=== PATIENT | female | born 1945 | race Caucasian/White ===

== ENCOUNTER 2017-09-22 13:20 | Day surgery (SDC) | payer MEDICARE ==
[~2017-09-22] VITALS: Ht 162.6 cm; Wt 104.0 kg
[~2017-09-22 13:20] MED LIST: ESTR2 PO; Excedrin Extra1 EACH; GABA600 PO; HYDR-86; Hair, Skin & N1 EACH PO; IBUP800 PO; OXYACE5T PO; OXYACE7.5T PO; POTCHL20ER PO; PRAM.125 PO; PROP80ER PO; ROPI1; RXIBUP800 PO; TORSE20 PO; Transderm-Scop1 EACH; VENL37.5ER PO
[2018-06-28] MEDS ORDERED: PROP80ER PO (11:21)
[2018-06-28] MEDS ORDERED: TORSE20 PO (11:21)
[2018-06-28] MEDS ORDERED: Estradiol0.5 MG PO (11:21)
[2018-06-28] MEDS ORDERED: Multivitamin1 EAC1 PO (11:21)
[2018-06-28] MEDS ORDERED: Norco 10-325 T1 EACH PO (11:22)
[2018-06-28] MEDS ORDERED: Neurontin 300300 MG PO (11:22)
[2018-06-28] MEDS ORDERED: Excedrin Extra1 EACH PO (11:22)
[2018-06-28] MEDS ORDERED: PRAM.125 PO (11:23)
[2018-06-28] MEDS ORDERED: VENL37.5ER PO (11:23)
[2018-08-09] MEDS ORDERED: MIRALAX119 GM PO (13:23)
[2018-08-09] MEDS ORDERED: POTA10T PO (13:24)
[2018-08-09] MEDS ORDERED: TORSE20 PO (13:24)
== END 2017-09-22 18:10 | disposition home or self-care (01) ==
LOC: ORSCSDS 13:20
PROVIDERS: Internal Medicine Gastroenterology
PROC: 3E0H8GC Introduction of Other Therapeutic Substance into Lower GI, Via Natural or Artificial Opening Endoscopic (ICD-10-PCS; principal; 2017-09-22 15:00)
PROC: 0DBK8ZX Excision of Ascending Colon, Via Natural or Artificial Opening Endoscopic, Diagnostic (ICD-10-PCS; principal; 2017-09-22 15:00)
PROC: 0DBM8ZX Excision of Descending Colon, Via Natural or Artificial Opening Endoscopic, Diagnostic (ICD-10-PCS; principal; 2017-09-22 15:00)
PROC: 0DBH8ZX Excision of Cecum, Via Natural or Artificial Opening Endoscopic, Diagnostic (ICD-10-PCS; principal; 2017-09-22 15:00)
DX: Z86.010 Personal history of colon polyps (principal); Z80.0 Family history of malignant neoplasm of digestive organs; Z83.71 Family history of colonic polyps; K57.30 Diverticulosis of large intestine without perforation or abscess without bleeding; K63.5 Polyp of colon; D12.2 Benign neoplasm of ascending colon; D12.0 Benign neoplasm of cecum; I10 Essential (primary) hypertension; G47.33 Obstructive sleep apnea (adult) (pediatric); E66.01 Morbid (severe) obesity due to excess calories; Z68.39 Body mass index [BMI] 39.0-39.9, adult; Z79.899 Other long term (current) drug therapy
CPT/HCPCS: 88305; J1980; J2250; J7120

== ENCOUNTER 2017-09-24 03:24 | Observation (INO) | payer MEDICARE ==
[~2017-09-24] VITALS: Ht 162.6 cm; Wt 106.5 kg
[2017-09-24 04:12] LABS: BASOPHILS ABSOLUTE AUTO 0.05 K/mm3 (0.00-0.23); BASOPHILS PERCENT AUTO 1 % (0-2); EOSINOPHILS ABSOLUTE AUTO 0.34 K/mm3 (0.00-0.68); EOSINOPHILS PERCENT AUTO 3 % (0-6); Hematocrit 36.1 % (33.0-51.0); Hemoglobin 11.6 g/dL (11.5-16.0); IMMATURE GRAN ABSOLUTE AUTO 0.05 K/mm3 (0.00-0.10); IMMATURE GRAN PERCENT AUTO 1 % (0-1); LYMPHOCYTES ABSOLUTE AUTO 2.23 K/mm3 (0.84-5.20); LYMPHOCYTES PERCENT AUTO 22 % (21-46); MONOCYTES ABSOLUTE AUTO 0.71 K/mm3 (0.16-1.47); MONOCYTES PERCENT AUTO 7 % (4-13); Mean Corpuscular HGB 31.2 pg (26.0-34.0); Mean Corpuscular HGB Conc 32.1 g/dL (31.5-36.5); Mean Corpuscular Volume 97 fL (80-100); Mean Platelet Volume 9.5 fL (9.1-12.4); NEUTROPHILS ABSOLUTE AUTO 6.88 K/mm3 (1.96-9.15); NEUTROPHILS PERCENT AUTO 67 % (41-73); Platelet Count 281 K/mm3 (150-400); RDW Coefficient Variation 13.1 % (11.7-14.2); RDW Standard Deviation 46.9 fL (35.1-46.3); Red Blood Cell Count 3.72 M/mm3 (3.80-5.20); White Blood Cell Count 10.26 K/mm3 (4.00-11.30)
[2017-09-24 04:24] LABS: Alanine Aminotransfer (ALT/SGP 22 U/L (12-78); Albumin, Blood 3.2 g/dL (3.4-5.0); Albumin/Globulin Ratio 1.1 (0.8-1.8); Alk Phos 51 U/L (50-136); Anion Gap 6 mmol/L (6-16); Aspartate Aminotrans (AST/SGOT 16 U/L (12-37); Bilirubin, Total 0.5 mg/dL (0.1-1.0); Blood Urea Nitrogen 12 mg/dL (8-24); Bun/Creatinine Ratio 15.7 (12.0-20.0); CO2, Blood 25 mmol/L (21-32); Calcium, Blood 8.5 mg/dL (8.5-10.1); Chloride, Blood 109 mmol/L (98-108); Creatinine, Blood 0.77 mg/dL (0.40-1.00); Globulin, Blood 2.9 g/dL (2.2-4.0); Glomerular Filtration Rate >60 (60-); Glucose, Blood 139 mg/dL (70-99); Potassium, Blood 3.5 mmol/L (3.5-5.5); Sodium, Blood 140 mmol/L (136-145); Total Protein, Blood 6.1 g/dL (6.4-8.2)
[2017-09-24 09:28] LABS: Hematocrit 33.8 % (33.0-51.0); Hemoglobin 10.8 g/dL (11.5-16.0)
[2017-09-24 14:26] LABS: Hematocrit 37.3 % (33.0-51.0); Hemoglobin 11.7 g/dL (11.5-16.0)
[2017-09-25 04:02] LABS: BASOPHILS ABSOLUTE AUTO 0.04 K/mm3 (0.00-0.23); BASOPHILS PERCENT AUTO 1 % (0-2); EOSINOPHILS ABSOLUTE AUTO 0.45 K/mm3 (0.00-0.68); EOSINOPHILS PERCENT AUTO 6 % (0-6); Hematocrit 32.6 % (33.0-51.0); Hemoglobin 10.1 g/dL (11.5-16.0); IMMATURE GRAN ABSOLUTE AUTO 0.02 K/mm3 (0.00-0.10); IMMATURE GRAN PERCENT AUTO 0 % (0-1); LYMPHOCYTES ABSOLUTE AUTO 2.11 K/mm3 (0.84-5.20); LYMPHOCYTES PERCENT AUTO 30 % (21-46); MONOCYTES ABSOLUTE AUTO 0.52 K/mm3 (0.16-1.47); MONOCYTES PERCENT AUTO 7 % (4-13); Mean Corpuscular HGB 31.1 pg (26.0-34.0); Mean Platelet Volume 9.7 fL (9.1-12.4); NEUTROPHILS ABSOLUTE AUTO 3.85 K/mm3 (1.96-9.15); NEUTROPHILS PERCENT AUTO 55 % (41-73); Platelet Count 228 K/mm3 (150-400); RDW Coefficient Variation 13.2 % (11.7-14.2); RDW Standard Deviation 49.2 fL (35.1-46.3); Red Blood Cell Count 3.25 M/mm3 (3.80-5.20); White Blood Cell Count 6.99 K/mm3 (4.00-11.30)
[2017-09-25 04:08] LABS: Mean Corpuscular Volume 100 fL (80-100)
[2017-09-25 04:24] LABS: Anion Gap 4 mmol/L (6-16); Blood Urea Nitrogen 4 mg/dL (8-24); Bun/Creatinine Ratio 5.3 (12.0-20.0); CO2, Blood 29 mmol/L (21-32); Chloride, Blood 111 mmol/L (98-108); Creatinine, Blood 0.76 mg/dL (0.40-1.00); Glomerular Filtration Rate >60 (60-); Glucose, Blood 99 mg/dL (70-99); Potassium, Blood 3.6 mmol/L (3.5-5.5); Sodium, Blood 144 mmol/L (136-145)
[2017-09-25 09:24] LABS: Hematocrit 34.9 % (33.0-51.0); Hemoglobin 10.9 g/dL (11.5-16.0)
[2017-09-25] MEDS ORDERED: ACET325 PO (13:30)
[2018-06-28] MEDS ORDERED: Estradiol0.5 MG PO (11:21)
[2018-06-28] MEDS ORDERED: Multivitamin1 EAC1 PO (11:21)
[2018-06-28] MEDS ORDERED: TORSE20 PO (11:21)
[2018-06-28] MEDS ORDERED: PROP80ER PO (11:21)
[2018-06-28] MEDS ORDERED: Neurontin 300300 MG PO (11:22)
[2018-06-28] MEDS ORDERED: Excedrin Extra1 EACH PO (11:22)
[2018-06-28] MEDS ORDERED: Norco 10-325 T1 EACH PO (11:22)
[2018-06-28] MEDS ORDERED: VENL37.5ER PO (11:23)
[2018-06-28] MEDS ORDERED: PRAM.125 PO (11:23)
[2018-08-09] MEDS ORDERED: MIRALAX119 GM PO (13:23)
[2018-08-09] MEDS ORDERED: POTA10T PO (13:24)
[2018-08-09] MEDS ORDERED: TORSE20 PO (13:24)
== END 2017-09-25 13:56 | disposition home or self-care (01) ==
LOC: ER 03:24 → MEDS 03:25 → ERHOLD 03:25 → ICUE 03:25 → ERHOLD 03:25 → MEDS 10:37 → ICUE 12:11
PROVIDERS: Emergency Medicine; Internal Medicine; Internal Medicine Gastroenterology
PROC: 0W3P8ZZ Control Bleeding in Gastrointestinal Tract, Via Natural or Artificial Opening Endoscopic (ICD-10-PCS; principal; 2017-09-24 12:30)
DX: K91.840 Postprocedural hemorrhage of a digestive system organ or structure following a digestive system procedure (principal); D62 Acute posthemorrhagic anemia; I10 Essential (primary) hypertension; R51 Headache; G47.33 Obstructive sleep apnea (adult) (pediatric); G47.61 Periodic limb movement disorder; G89.29 Other chronic pain; M54.9 Dorsalgia, unspecified; Z86.010 Personal history of colon polyps; Z88.5 Allergy status to narcotic agent; Z79.82 Long term (current) use of aspirin; Z79.899 Other long term (current) drug therapy
CPT/HCPCS: 36415; 70450; 74177; 80048; 80053; 82272; 84484; 85014; 85018; 85025; 86850; 86900; 86901; 86920; 93005; 93010; 96374; 96375; 99285; C9113; G0378; J1980; J2370; J2405; J7030; J7120; Q9967

== ENCOUNTER 2018-08-31 07:55 | Day surgery (SDC) | payer MEDICARE ==
[~2018-08-31] VITALS: Ht 162.6 cm; Wt 104.8 kg
[~2018-08-31 07:55] MED LIST changes: +ACET325 PO; +Estradiol0.5 MG PO; +Excedrin Extra1 EACH PO; +MIRALAX119 GM PO; +Multivitamin1 EAC1 PO; +Neurontin 300300 MG PO; +Norco 10-325 T1 EACH PO; +POTA10T PO
== END 2018-08-31 10:11 | disposition home or self-care (01) ==
LOC: ORSCSDS 07:55
PROVIDERS: Ophthalmology
PROC: 08RK3JZ Replacement of Left Lens with Synthetic Substitute, Percutaneous Approach (ICD-10-PCS; principal; 2018-08-31 09:30)
DX: H25.12 Age-related nuclear cataract, left eye (principal); I10 Essential (primary) hypertension; G47.33 Obstructive sleep apnea (adult) (pediatric); Z87.891 Personal history of nicotine dependence; E66.01 Morbid (severe) obesity due to excess calories; Z68.39 Body mass index [BMI] 39.0-39.9, adult; Z79.899 Other long term (current) drug therapy; Z79.82 Long term (current) use of aspirin
CPT/HCPCS: J2250; J3010; J3301; V2632

== ENCOUNTER → 2019-02-01 | Outpatient (CLI) | payer MEDICARE | END | disposition home or self-care (01) | LOC: PLD 11:28 → LAB SHORT 11:28 | DX: D48.5 Neoplasm of uncertain behavior of skin (principal) | CPT/HCPCS: 88305 ==

== ENCOUNTER → 2019-03-29 | Outpatient (CLI) | payer MEDICARE | END | disposition home or self-care (01) | LOC: LAB SHORT 10:01 → PLD 10:01 | DX: D48.5 Neoplasm of uncertain behavior of skin (principal) | CPT/HCPCS: 88305 ==

== ENCOUNTER 2019-06-08 08:23 | Day surgery (SDC) | payer MEDICARE | END 2019-06-08 22:50 | disposition home or self-care (01) | LOC: RAD 08:23 | PROC: B01BYZZ Fluoroscopy of Spinal Cord using Other Contrast (ICD-10-PCS; principal; 2019-06-08) | DX: M96.1 Postlaminectomy syndrome, not elsewhere classified (principal); M54.16 Radiculopathy, lumbar region; Z96.82 Presence of neurostimulator ==

== ENCOUNTER 2019-09-08 06:21 | Day surgery (SDC) | payer MEDICARE ==
[~2019-09-08] VITALS: Ht 160 cm; Wt 103.1 kg
== END 2019-09-08 09:05 | disposition home or self-care (01) ==
LOC: ORSCSDS 06:21
PROVIDERS: Surgery
PROC: 0DBP8ZX Excision of Rectum, Via Natural or Artificial Opening Endoscopic, Diagnostic (ICD-10-PCS; principal; 2019-09-08 08:00)
DX: Z86.010 Personal history of colon polyps (principal); K62.1 Rectal polyp; G47.33 Obstructive sleep apnea (adult) (pediatric); I10 Essential (primary) hypertension; E78.00 Pure hypercholesterolemia, unspecified; F41.8 Other specified anxiety disorders; G25.81 Restless legs syndrome; Z79.899 Other long term (current) drug therapy; E66.01 Morbid (severe) obesity due to excess calories; Z68.41 Body mass index [BMI] 40.0-44.9, adult; Z87.891 Personal history of nicotine dependence
CPT/HCPCS: 88305; J2704; J7120

== ENCOUNTER 2022-03-04 13:09 | Emergency (ER) | payer OTHER, MEDICARE ==
[~2022-03-04] VITALS: Ht 160 cm; Wt 86.2 kg
== END 2022-03-04 14:25 | disposition home or self-care (01) ==
LOC: ER 13:09
DX: M54.2 Cervicalgia (principal); I10 Essential (primary) hypertension; Z79.899 Other long term (current) drug therapy; Z88.5 Allergy status to narcotic agent; V89.2XXA Person injured in unspecified motor-vehicle accident, traffic, initial encounter
CPT/HCPCS: 72125

== ENCOUNTER 2025-03-21 20:45 | Emergency (ER) | payer MEDICARE ==
[~2025-03-21] VITALS: Ht 160 cm; Wt 81.7 kg
[2025-03-21 21:05] LABS: BASOPHILS ABSOLUTE AUTO 0.08 K/mm3 (0.00-0.23); BASOPHILS PERCENT AUTO 1 % (0-2); EOSINOPHILS ABSOLUTE AUTO 0.31 K/mm3 (0.00-0.68); EOSINOPHILS PERCENT AUTO 3 % (0-6); Hematocrit 34.9 % (33.0-51.0); Hemoglobin 11.0 g/dL (11.5-16.0); IMMATURE GRAN ABSOLUTE AUTO 0.15 K/mm3 (0.00-0.10); IMMATURE GRAN PERCENT AUTO 1 % (0-1); LYMPHOCYTES ABSOLUTE AUTO 1.91 K/mm3 (0.84-5.20); LYMPHOCYTES PERCENT AUTO 17 % (21-46); MONOCYTES ABSOLUTE AUTO 0.76 K/mm3 (0.16-1.47); MONOCYTES PERCENT AUTO 7 % (4-13); Mean Corpuscular HGB Conc 31.5 g/dL (31.5-36.5); Mean Corpuscular Volume 93 fL (80-100); NEUTROPHILS ABSOLUTE AUTO 8.37 K/mm3 (1.96-9.15); NEUTROPHILS PERCENT AUTO 72 % (41-73); NRBC ABSOLUTE 0.00 K/mm3 (0.00-0.02); NRBC Auto 0.0 /100 WBC (0.0-0.2); Platelet Count 313 K/mm3 (150-400); RDW Coefficient Variation 15.7 % (11.7-14.2); RDW Standard Deviation 53.7 fL (35.1-46.3)
[2025-03-21 21:11] LABS: Source, Urine Straight Cath
[2025-03-21 21:15] LABS: Bilirubin, Urine Neg (Neg); Color, Urine Yellow (P-Yellow); Glucose Qualitative, Urine Neg (Neg); Ketones, Urine Neg (Neg); Leukocyte Esterase, Urine 3+ (Neg); Protein, Urine 2+ (Neg); Specific Gravity, Urine 1.005 (1.003-1.022); Urobilinogen, Urine NORM (Normal)
[2025-03-21 21:24] LABS: White Blood Cells, Urine TNTC /hpf (0-5)
[2025-03-21 21:27] LABS: Alanine Aminotransfer (ALT/SGP 26.0 U/L (12-78); Albumin, Blood 2.7 g/dL (3.4-5.0); Albumin/Globulin Ratio 0.8 (0.8-1.8); Anion Gap 7.0 mmol/L (3-11); Aspartate Aminotrans (AST/SGOT 21.0 U/L (12-37); Bilirubin, Total 0.3 mg/dL (0.1-1.0); Blood Urea Nitrogen 16.0 mg/dL (8-24); CO2, Blood 28.0 mmol/L (21-32); Calcium, Blood 9.0 mg/dL (8.5-10.1); Chloride, Blood 99.0 mmol/L (98-108); Creatinine, Blood 1.43 mg/dL (0.40-1.00); Globulin, Blood 3.4 g/dL (2.2-4.0); Glucose, Blood 147.0 mg/dL (70-99); Potassium, Blood 4.0 mmol/L (3.5-5.5); Sodium, Blood 130.0 mmol/L (136-145); Total Protein, Blood 6.1 g/dL (6.4-8.2)
[2025-03-21] MEDS ORDERED: CefTRIAXone Sodium 1,000 MG in NS 50 ML IV ONE (21:40)
[2025-03-21] MEDS ORDERED: CEPH500 PO (21:48)
[2025-03-21] MEDS ORDERED: BUPROPION XL150 M1 PO (21:58)
[2025-03-21] MEDS ORDERED: DOXA1 PO (21:58)
[2025-03-21] MEDS ORDERED: FERSU300 PO (22:00)
[2025-03-21] MEDS ORDERED: [UNRECOGNIZED DRUG - OTHER] PO (22:00)
[2025-03-21] MEDS ORDERED: MIRALAX17 GM PO (22:01)
[2025-03-21] MEDS ORDERED: LOSA50 PO (22:01)
[2025-03-21] MEDS ORDERED: Children's Che1 EAC1 PO (22:01)
[2025-03-21] MEDS ORDERED: TOPI100 PO (22:02)
[2025-03-21] MEDS ORDERED: NEURONTIN300 MG PO (22:03)
[2025-03-21] MEDS ORDERED: SENN187 PO (22:04)
[2025-03-21] MEDS ORDERED: Acetaminophen650 M1 PO (22:04)
[2025-03-21] MEDS ORDERED: DICLOFENAC SOD100 GM TP (22:04)
[2025-03-21] MEDS ORDERED: ONDA4 PO (22:05)
[2025-03-21] MEDS ORDERED: IPRAT-ALBUT 0.5-3 ML INH (22:05)
[2025-03-21] MEDS ORDERED: Magic Bullet10 MG PR (22:05)
[2025-03-21 23:45] VITALS: BP 99/72
== END 2025-03-21 23:53 | disposition home or self-care (01) ==
LOC: ER 20:45
PROVIDERS: Emergency Medicine
DX: N39.0 Urinary tract infection, site not specified (principal); G47.33 Obstructive sleep apnea (adult) (pediatric); I10 Essential (primary) hypertension; Z86.73 Personal history of transient ischemic attack (TIA), and cerebral infarction without residual deficits; Z74.01 Bed confinement status; Z88.5 Allergy status to narcotic agent; Z79.899 Other long term (current) drug therapy
CPT/HCPCS: 51701; 70450; 80053; 81001; 85025; 87086; 87106; 93005; 93010; 96365; 99285-25; A6590; J0696

== ENCOUNTER 2025-03-28 15:35 | Emergency (ER) | payer MEDICARE ==
[~2025-03-28] VITALS: Ht 170.2 cm; Wt 68.0 kg
[~2025-03-28 15:35] MED LIST changes: +Acetaminophen650 M1 PO; +BUPROPION XL150 M1 PO; +CEPH500 PO; +Children's Che1 EAC1 PO; +DICLOFENAC SOD100 GM TP; +DOXA1 PO; +FERSU300 PO; +IPRAT-ALBUT 0.5-3 ML INH; +LOSA50 PO; +MIRALAX17 GM PO; +Magic Bullet10 MG PR; +NEURONTIN300 MG PO; +ONDA4 PO; +SENN187 PO; +TOPI100 PO; +[UNRECOGNIZED DRUG - OTHER] PO
[2025-03-28] MEDS ORDERED: NS 500 ML IV SCH (15:45)
[2025-03-28 16:09] LABS: BASOPHILS ABSOLUTE AUTO 0.08 K/mm3 (0.00-0.23); BASOPHILS PERCENT AUTO 1 % (0-2); EOSINOPHILS ABSOLUTE AUTO 0.49 K/mm3 (0.00-0.68); EOSINOPHILS PERCENT AUTO 5 % (0-6); Hematocrit 36.9 % (33.0-51.0); Hemoglobin 11.7 g/dL (11.5-16.0); IMMATURE GRAN ABSOLUTE AUTO 0.07 K/mm3 (0.00-0.10); IMMATURE GRAN PERCENT AUTO 1 % (0-1); LYMPHOCYTES ABSOLUTE AUTO 2.23 K/mm3 (0.84-5.20); LYMPHOCYTES PERCENT AUTO 21 % (21-46); MONOCYTES ABSOLUTE AUTO 0.89 K/mm3 (0.16-1.47); MONOCYTES PERCENT AUTO 8 % (4-13); Mean Corpuscular HGB Conc 31.7 g/dL (31.5-36.5); Mean Corpuscular Volume 91 fL (80-100); NEUTROPHILS ABSOLUTE AUTO 6.85 K/mm3 (1.96-9.15); NEUTROPHILS PERCENT AUTO 65 % (41-73); NRBC ABSOLUTE 0.00 K/mm3 (0.00-0.02); NRBC Auto 0.0 /100 WBC (0.0-0.2); Platelet Count 282 K/mm3 (150-400); RDW Coefficient Variation 15.8 % (11.7-14.2); RDW Standard Deviation 53.3 fL (35.1-46.3)
[2025-03-28] MEDS ORDERED: CEPH500 PO (16:16)
[2025-03-28] MEDS ORDERED: IPRAT-ALBUT 0.5-3 ML INH (16:18)
[2025-03-28] MEDS ORDERED: ONDA4 PO (16:18)
[2025-03-28 16:34] VITALS: BP 97/63
[2025-03-28 16:38] LABS: Alanine Aminotransfer (ALT/SGP 30.0 U/L (12-78); Albumin, Blood 2.9 g/dL (3.4-5.0); Albumin/Globulin Ratio 0.8 (0.8-1.8); Anion Gap 7.0 mmol/L (3-11); Aspartate Aminotrans (AST/SGOT 21.0 U/L (12-37); Bilirubin, Total 0.3 mg/dL (0.1-1.0); Blood Urea Nitrogen 18.0 mg/dL (8-24); CO2, Blood 29.0 mmol/L (21-32); Calcium, Blood 9.7 mg/dL (8.5-10.1); Chloride, Blood 96.0 mmol/L (98-108); Creatinine, Blood 1.36 mg/dL (0.40-1.00); Globulin, Blood 3.7 g/dL (2.2-4.0); Glucose, Blood 112.0 mg/dL (70-99); Potassium, Blood 3.3 mmol/L (3.5-5.5); Sodium, Blood 129.0 mmol/L (136-145); Total Protein, Blood 6.6 g/dL (6.4-8.2)
[2025-03-28 16:47] LABS: Source, Urine Clean Catch
[2025-03-28 17:07] LABS: Bilirubin, Urine Neg (Neg); Color, Urine Yellow (P-Yellow); Glucose Qualitative, Urine Neg (Neg); Ketones, Urine Neg (Neg); Leukocyte Esterase, Urine 3+ (Neg); Protein, Urine 1+ (Neg); Specific Gravity, Urine 1.020 (1.003-1.022); Urobilinogen, Urine NORM (Normal)
[2025-03-28 17:27] LABS: White Blood Cells, Urine TNTC /hpf (0-5)
[2025-03-28 17:28] LABS: Red Blood Cells, Urine 0-2 /hpf (0-2); Yeast/Fungi Urine Rare /hpf
[2025-03-28] MEDS ORDERED: Keflex500 MG PO (17:48)
[2025-03-28] MEDS ORDERED: CefTRIAXone Sodium 1,000 MG in NS 100 ML IV ONE (17:50)
== END 2025-03-28 19:14 | disposition home or self-care (01) ==
LOC: ER 15:35
PROVIDERS: Emergency Medicine
DX: N39.0 Urinary tract infection, site not specified (principal); E86.0 Dehydration; R40.4 Transient alteration of awareness; I10 Essential (primary) hypertension; G47.33 Obstructive sleep apnea (adult) (pediatric); Z88.5 Allergy status to narcotic agent; Z79.899 Other long term (current) drug therapy
CPT/HCPCS: 70450; 80053; 81001; 85025; 93005; 93010; 96361; 96365; 99285-25; J0696; J7030

== ENCOUNTER 2025-08-05 15:38 | Inpatient (IN) | payer MEDICARE ==
[~2025-08-05] VITALS: Ht 172.7 cm; Wt 56.7 kg
[~2025-08-05 15:38] MED LIST changes: +EFFEXOR XR150 MG PO; +Keflex500 MG PO
[2025-08-05 16:19] LABS: BASOPHILS ABSOLUTE AUTO 0.10 K/mm3 (0.00-0.23); BASOPHILS PERCENT AUTO 1 % (0-2); EOSINOPHILS ABSOLUTE AUTO 0.62 K/mm3 (0.00-0.68); EOSINOPHILS PERCENT AUTO 3 % (0-6); Hematocrit 40.7 % (33.0-51.0); Hemoglobin 11.9 g/dL (11.5-16.0); IMMATURE GRAN ABSOLUTE AUTO 0.15 K/mm3 (0.00-0.10); IMMATURE GRAN PERCENT AUTO 1 % (0-1); LYMPHOCYTES ABSOLUTE AUTO 2.37 K/mm3 (0.84-5.20); LYMPHOCYTES PERCENT AUTO 13 % (21-46); MONOCYTES ABSOLUTE AUTO 1.13 K/mm3 (0.16-1.47); MONOCYTES PERCENT AUTO 6 % (4-13); Mean Corpuscular HGB Conc 29.2 g/dL (31.5-36.5); Mean Corpuscular Volume 110 fL (80-100); NEUTROPHILS ABSOLUTE AUTO 13.93 K/mm3 (1.96-9.15); NEUTROPHILS PERCENT AUTO 76 % (41-73); NRBC ABSOLUTE 0.00 K/mm3 (0.00-0.02); NRBC Auto 0.0 /100 WBC (0.0-0.2); Platelet Count 397 K/mm3 (150-400); RDW Coefficient Variation 14.7 % (11.7-14.2); RDW Standard Deviation 59.7 fL (35.1-46.3)
[2025-08-05 16:56] LABS: Alanine Aminotransfer (ALT/SGP 27 U/L (12-78); Albumin, Blood 3.1 g/dL (3.4-5.0); Albumin/Globulin Ratio 0.7 (0.8-1.8); Anion Gap 5 mmol/L (3-11); Aspartate Aminotrans (AST/SGOT 23 U/L (12-37); Bilirubin, Total 0.3 mg/dL (0.1-1.0); Blood Urea Nitrogen 62 mg/dL (8-24); CO2, Blood 31 mmol/L (21-32); Calcium, Blood 12.9 mg/dL (8.5-10.1); Chloride, Blood 127 mmol/L (98-108); Creatinine, Blood 2.77 mg/dL (0.40-1.00); Ethanol (Alcohol), Blood, Med <3 mg/dL; Globulin, Blood 4.3 g/dL (2.2-4.0); Glucose, Blood 106 mg/dL (70-99); Potassium, Blood 4.6 mmol/L (3.5-5.5); Sodium, Blood 158 mmol/L (136-145); Thyroid Stimulating Hormone 0.853 uIU/mL (0.360-4.800); Total Protein, Blood 7.4 g/dL (6.4-8.2)
[2025-08-05 19:25] LABS: Source, Urine Clean Catch
[2025-08-05 19:37] LABS: Bilirubin, Urine Neg (Neg); Color, Urine Yellow (P-Yellow); Glucose Qualitative, Urine Neg (Neg); Ketones, Urine Neg (Neg); Leukocyte Esterase, Urine 3+ (Neg); Protein, Urine 2+ (Neg); Specific Gravity, Urine 1.020 (1.003-1.022); Urobilinogen, Urine NORM (Normal)
[2025-08-05 19:38] LABS: White Blood Cells, Urine 50-100 /hpf (0-5)
[2025-08-05 19:46] LABS: U Amphetamine Screen Not Detected; U Barbiturate Screen Not Detected; U Benzodiazapine Screen Not Detected; U Buprenorphine Screen Not Detected; U Cannabinoids Screen Not Detected; U Cocaine Screen Not Detected; U Methadone Screen Not Detected; U Methamphetamine Screen Not Detected; U Opiates Screen Not Detected; U Oxycodone Screen Not Detected; U Phencyclidine Screen Not Detected
[2025-08-05] MEDS ORDERED: Ondansetron HCl 2 MG / ML 2ML Vial IV PRN (19:55)
[2025-08-05] MEDS ORDERED: FLU VACC TS2025(65UP)/MF59C/PF 45 MCG/0.5 ML SYRINGE IM SCH (19:55)
[2025-08-05] MEDS ORDERED: CefTRIAXone Sodium 1,000 MG in NS 100 ML IV SCH (20:00)
[2025-08-05 20:04] LABS: pH Blood Venous 7.31 (7.34-7.37)
[2025-08-05] MEDS ORDERED: Heparin Sodium,Porcine 5,000 UNIT/0.5 ML SDV SC SCH (21:00)
[2025-08-05 23:16] VITALS: BP 108/59
[2025-08-06 00:31] LABS: Prothrombin Time Results 11.1 Sec (9.7-11.5)
[2025-08-06 00:33] LABS: Anion Gap 6.0 mmol/L (3-11); Blood Urea Nitrogen 63.0 mg/dL (8-24); CO2, Blood 30.0 mmol/L (21-32); Calcium, Blood 12.2 mg/dL (8.5-10.1); Chloride, Blood 127.0 mmol/L (98-108); Creatinine, Blood 2.7 mg/dL (0.40-1.00); Glucose, Blood 115.0 mg/dL (70-99); Magnesium, Blood 2.9 mg/dL (1.6-2.4); Phosphorus, Blood 3.1 mg/dL (2.5-4.9); Potassium, Blood 4.6 mmol/L (3.5-5.5); Sodium, Blood 158.0 mmol/L (136-145)
[2025-08-06 03:51] VITALS: BP 115/75
[2025-08-06 05:21] LABS: pH Blood Venous 7.38 (7.34-7.37)
[2025-08-06 05:39] LABS: BASOPHILS ABSOLUTE AUTO 0.09 K/mm3 (0.00-0.23); BASOPHILS PERCENT AUTO 1 % (0-2); EOSINOPHILS ABSOLUTE AUTO 0.72 K/mm3 (0.00-0.68); EOSINOPHILS PERCENT AUTO 4 % (0-6); Hematocrit 36.4 % (33.0-51.0); Hemoglobin 10.5 g/dL (11.5-16.0); IMMATURE GRAN ABSOLUTE AUTO 0.13 K/mm3 (0.00-0.10); IMMATURE GRAN PERCENT AUTO 1 % (0-1); LYMPHOCYTES ABSOLUTE AUTO 1.95 K/mm3 (0.84-5.20); LYMPHOCYTES PERCENT AUTO 12 % (21-46); MONOCYTES ABSOLUTE AUTO 0.84 K/mm3 (0.16-1.47); MONOCYTES PERCENT AUTO 5 % (4-13); Mean Corpuscular HGB Conc 28.8 g/dL (31.5-36.5); Mean Corpuscular Volume 111 fL (80-100); NEUTROPHILS ABSOLUTE AUTO 12.83 K/mm3 (1.96-9.15); NEUTROPHILS PERCENT AUTO 78 % (41-73); NRBC ABSOLUTE 0.00 K/mm3 (0.00-0.02); NRBC Auto 0.0 /100 WBC (0.0-0.2); Platelet Count 303 K/mm3 (150-400); RDW Coefficient Variation 14.6 % (11.7-14.2); RDW Standard Deviation 59.9 fL (35.1-46.3)
[2025-08-06 06:03] LABS: Alanine Aminotransfer (ALT/SGP 21.0 U/L (12-78); Albumin, Blood 2.8 g/dL (3.4-5.0); Albumin/Globulin Ratio 0.8 (0.8-1.8); Anion Gap 4.0 mmol/L (3-11); Aspartate Aminotrans (AST/SGOT 15.0 U/L (12-37); Bilirubin, Total 0.3 mg/dL (0.1-1.0); Blood Urea Nitrogen 57.0 mg/dL (8-24); CO2, Blood 30.0 mmol/L (21-32); Calcium, Blood 12.3 mg/dL (8.5-10.1); Chloride, Blood 123.0 mmol/L (98-108); Creatinine, Blood 2.49 mg/dL (0.40-1.00); Globulin, Blood 3.7 g/dL (2.2-4.0); Glucose, Blood 123.0 mg/dL (70-99); Potassium, Blood 4.2 mmol/L (3.5-5.5); Sodium, Blood 153.0 mmol/L (136-145); Total Protein, Blood 6.5 g/dL (6.4-8.2)
[2025-08-06 06:44] LABS: Source, Urine Foley catheter
[2025-08-06 07:04] LABS: Bilirubin, Urine Neg (Neg); Glucose Qualitative, Urine Neg (Neg); Ketones, Urine Neg (Neg); Leukocyte Esterase, Urine 3+ (Neg); Protein, Urine 3+ (Neg); Specific Gravity, Urine 1.020 (1.003-1.022); Urobilinogen, Urine NORM (Normal)
[2025-08-06 07:05] LABS: Color, Urine Pale Yellow (P-Yellow)
[2025-08-06 07:09] LABS: White Blood Cells, Urine TNTC /hpf (0-5)
[2025-08-06 07:43] VITALS: BP 118/71
--- NOTE | 2025-08-06 08:18 | NUR ---
SHIFT SUMMARY:: PT ARRIVES TO PCU 7 FROM THE ER VIA GURNEY AROUND 2330. PT WAS TRANSFERRED TO THE HOSPITAL BED USING A SLIDE SHEET. PT ORIENTED TO ROOM, STAFF, AND CALL LIGHT. PT'S AT BEDSIDE. PT IS OBTUNDED, NONVERBAL, HER BODY IS RIGID. SHE ARRIVES ON 2L OXYGEN VIA NC. BP IS SOFT, MAP >65, PT HAS D5 INFUSING AT 125/HR INTO A 22G RIGHT AC IV. RT TO BEDSIDE LATER ON AND PLACED PT ON A BIPAP, PT WORE THIS UNTIL THIS AM. PT MORE ALERT THIS MORNING, BUT STILL ONLY MUMBLES. PT'S STATES THIS HAS BEEN HER NORMAL STATE SINCE HER STROKE. PT REMAINS NPO. PT IS INCONTINENT, SO A WICKING SYSTEM WAS PLACED. MINIMAL OUTPUT, SO A BLADDER SCAN WAS PERFORMED. HER BLADDER SCAN READ 536ML IN BLADDER. THIS RN GOT AN ORDER FOR STRAIGHT CATH. WHILE PERFORMING A STRAIGHT CATH, THE URINE WAS PURULENT AND MALODOROUS. SENT ANOTHER UA, AND RECEIVED AN ORDER TO INSERT A ALDRIDGE CATHETER. BED IN LOWEST POSITION, CALL LIGHT WITHIN REACH. PT HAS NOT DEMONSTRATED IF SHE CAN USE HER CALL LIGHT APPROPRIATELY, BED ALARM SET FOR PT'S SAFETY.
[2025-08-06] MEDS ORDERED: PROVIGIL PO (09:55)
[2025-08-06 11:37] VITALS: BP 113/96
[2025-08-06] MEDS ORDERED: SOAANZ40 MG PO (11:44)
[2025-08-06] MEDS ORDERED: DOCU100 PO (11:45)
[2025-08-06] MEDS ORDERED: BUPR150ER PO (11:46)
[2025-08-06] MEDS ORDERED: MODA200 PO (11:46)
[2025-08-06] MEDS ORDERED: TOPI100 PO (11:47)
[2025-08-06] MEDS ORDERED: Neurontin 100100 MG PO (11:47)
[2025-08-06] MEDS ORDERED: VENL150ER PO (11:48)
[2025-08-06 12:15] LABS: Anion Gap 4.0 mmol/L (3-11); Blood Urea Nitrogen 57.0 mg/dL (8-24); CO2, Blood 31.0 mmol/L (21-32); Calcium, Blood 12.4 mg/dL (8.5-10.1); Chloride, Blood 123.0 mmol/L (98-108); Creatinine, Blood 2.29 mg/dL (0.40-1.00); Glucose, Blood 115.0 mg/dL (70-99); Potassium, Blood 3.9 mmol/L (3.5-5.5); Sodium, Blood 154.0 mmol/L (136-145)
--- NOTE | 2025-08-06 12:19 | NUR ---
MET WITH PT'S CHAVA AT THE BEDSIDE THIS AM. PT DID NOT SPEAK DURING THIS MEETING, BUT DID SMILE OCCASIONALLY. REPORTS THE PATIENT HAS BEEN STAYING AT AN [facility] FOR APPROXIMATELY A MONTH AFTER HAVING A CVA, BACK SURGERY, AND A STINT AT REHAB. WE DISCUSSED CODE STATUS, AND CHAVA STATES HIS HAS MADE HER WISHES KNOWN TO HIM IN WRITING, AND SHE WOULD NOT WANT TO BE RESUCITATED OR LIVE WITH PERMANENT "TUBES" IN PLACE. WE CHANGED CODE STATUS TO DNR PER DR. CAMPBELL. CHAVA STATES HE REALIZES THE PATIENT IS VERY ILL AND MAY NOT RETURN TO PREVIOUS LEVEL OF FUNCTION. WE AGREED TO TAKE IT "ONE DAY AT A TIME" FOR NOW.
[2025-08-06 15:07] LABS: Anion Gap 5.0 mmol/L (3-11); Blood Urea Nitrogen 55.0 mg/dL (8-24); CO2, Blood 30.0 mmol/L (21-32); Calcium, Blood 12.1 mg/dL (8.5-10.1); Chloride, Blood 120.0 mmol/L (98-108); Creatinine, Blood 2.18 mg/dL (0.40-1.00); Glucose, Blood 111.0 mg/dL (70-99); Potassium, Blood 4.1 mmol/L (3.5-5.5); Sodium, Blood 151.0 mmol/L (136-145)
[2025-08-06 16:18] VITALS: BP 119/80
--- NOTE | 2025-08-06 17:43 | NUR ---
SHIFT SUMMARY: ASSUMED CARE OF PATIENT AT 0700 FROM TERMINAL OPERATOR RN. PATIENT RESTING IN BED WITH CPAP MASK ON. A&OX1, OPENS EYES TO NAME BUT MUMBLES WHEN RESPONDING WITH NO PURPOSEFUL COMMUNICATION. LOWER EXTREMITIES FLEXED AND RIDGID. NO PURPOSEFUL MOVEMENT OF LEGS, HX OF STROKE AND WHEELCHAIR BOUND AT BASELINE. ALDRDIGE DRAINING CLOUDY YELLOW URINE. NPO FOR ALTERED MENTATION. AT BEDSIDE THROUGHOUT SHIFT, CALL LIGHT IN REACH, BED ALARM SET AND BED IN LOWEST POSITION WITH WHEELS LOCKED.
[2025-08-06 18:47] LABS: Anion Gap 2.0 mmol/L (3-11); Blood Urea Nitrogen 50.0 mg/dL (8-24); CO2, Blood 30.0 mmol/L (21-32); Calcium, Blood 12.0 mg/dL (8.5-10.1); Chloride, Blood 117.0 mmol/L (98-108); Creatinine, Blood 2.07 mg/dL (0.40-1.00); Glucose, Blood 110.0 mg/dL (70-99); Potassium, Blood 4.1 mmol/L (3.5-5.5); Sodium, Blood 145.0 mmol/L (136-145)
[2025-08-06 21:25] VITALS: BP 125/84
[2025-08-07 00:05] VITALS: BP 95/56
[2025-08-07 00:40] VITALS: BP 104/67
[2025-08-07 03:57] VITALS: BP 107/79
[2025-08-07 04:29] LABS: BASOPHILS ABSOLUTE AUTO 0.03 K/mm3 (0.00-0.23); BASOPHILS PERCENT AUTO 0 % (0-2); EOSINOPHILS ABSOLUTE AUTO 0.66 K/mm3 (0.00-0.68); EOSINOPHILS PERCENT AUTO 6 % (0-6); Hematocrit 28.3 % (33.0-51.0); Hemoglobin 8.6 g/dL (11.5-16.0); IMMATURE GRAN ABSOLUTE AUTO 0.07 K/mm3 (0.00-0.10); IMMATURE GRAN PERCENT AUTO 1 % (0-1); LYMPHOCYTES ABSOLUTE AUTO 1.68 K/mm3 (0.84-5.20); LYMPHOCYTES PERCENT AUTO 14 % (21-46); MONOCYTES ABSOLUTE AUTO 0.66 K/mm3 (0.16-1.47); MONOCYTES PERCENT AUTO 6 % (4-13); Mean Corpuscular HGB Conc 30.4 g/dL (31.5-36.5); NEUTROPHILS ABSOLUTE AUTO 8.94 K/mm3 (1.96-9.15); NEUTROPHILS PERCENT AUTO 74 % (41-73); NRBC ABSOLUTE 0.00 K/mm3 (0.00-0.02); NRBC Auto 0.0 /100 WBC (0.0-0.2); Platelet Count 228 K/mm3 (150-400); RDW Coefficient Variation 13.7 % (11.7-14.2); RDW Standard Deviation 53.5 fL (35.1-46.3)
[2025-08-07 04:33] LABS: Mean Corpuscular Volume 106 fL (80-100)
[2025-08-07 06:01] LABS: Anion Gap 6.0 mmol/L (3-11); Blood Urea Nitrogen 44.0 mg/dL (8-24); CO2, Blood 28.0 mmol/L (21-32); Calcium, Blood 11.1 mg/dL (8.5-10.1); Chloride, Blood 109.0 mmol/L (98-108); Creatinine, Blood 1.71 mg/dL (0.40-1.00); Glucose, Blood 108.0 mg/dL (70-99); Potassium, Blood 3.4 mmol/L (3.5-5.5); Sodium, Blood 140.0 mmol/L (136-145)
[2025-08-07] MEDS ORDERED: Potassium Chl 20MEQ/Water100ML 100 ML IV ONE (06:40)
--- NOTE | 2025-08-07 07:29 | NUR ---
SHIFT SUMMARY: PT IS LETHARGIC, SHE DOES RESPOND TO VERBAL STIMULI. VSS ON RA, RT TO BEDSIDE LATER ON AND PLACED PT ON A BIPAP, PT WORE THIS THROUGH THE NIGHT. PT MORE ALERT THIS SHIFT, BUT STILL ONLY MUMBLES. WHEN THIS RN ASKED IF PT WAS IN PAIN, SHE STATED "NO". SHE DOES ANSWER YES/NO QUESTIONS APPROPRIATELY. SHE ATTEMPTS TO FOLLOW SIMPLE COMMANDS. ORAL CARE COMPLETED, AND PUT IN A CONSULT FOR THE DENTAL HYGIENIST. PT REMAINS NPO. ALDRIDGE CATHETER DRAINING ADEQUATE AMOUNTS OF YELLOW URINE WITH PARTICLES TO GRAVITY. NO BM THIS SHIFT. BED IN LOWEST POSITION, CALL LIGHT WITHIN REACH. PT HAS NOT DEMONSTRATED IF SHE CAN USE HER CALL LIGHT APPROPRIATELY, BED ALARM SET FOR PT'S SAFETY.
[2025-08-07] MEDS ORDERED: NS 500 ML IV SCH (07:35)
[2025-08-07 07:57] VITALS: BP 110/75
[2025-08-07] MEDS ORDERED: Ampicillin Sod/Sulbactam Sod 3 GM in NS 100 ML IV SCH (10:00)
[2025-08-07 11:15] VITALS: BP 96/59
--- NOTE | 2025-08-07 18:01 | NUR ---
SHIFT SUMMARY: ASSUMED CARE OF PATIENT AT 0700 FROM ENVIRONMENTAL STUDIES FACULTY MEMBER RN. PATIENT RESTING COMFORTABLY IN BED WITH CPAP ON. ALERT TO SELF ONLY AND MUMBLES WHEN RESPONDING WITH NO PURPOSEFUL COMMUNICATION. NO PURPOSEFUL MOVEMENT OF LEGS, HX OF STROKE AND WHEELCHAIR BOUND AT BASELINE. ALDRIDGE DRAINING CLEAR YELLOW URINE. CALL LIGHT IN REACH, BED ALARM SET AND BED LOCKED IN LOWEST POSTION WITH WHEELS LOCKED. SPEECH EVAL COMPLETED, NOT SAFE TO ADVANCE DIET AT THIS TIME PER SPEECH THERAPIST.
[2025-08-07 20:08] VITALS: BP 132/75
--- NOTE | 2025-08-07 22:53 | NUR ---
TRANSFER NOTE: PT TRANSFERRED FROM PCU 7 TO 330, PT PLEASANT THOUGH CONFUSED. ATTEMPTED TO ORIENT TO ROOM, CALL LIGHT IN REACH, BED IN LOWEST POSITION. CONTINUING CARE.
[2025-08-08 00:06] VITALS: BP 119/60
[2025-08-08 04:24] VITALS: BP 117/71
--- NOTE | 2025-08-08 05:38 | NUR ---
SHIFT SUMMARY: PT AOX1-2 TO SELF ONLY. MUMBLING, WORD SALAD SPEECH. CONTRACTED AND RIGID MUSCLES. PT PLEASANT AND COOPERATIVE IN CARE. SMALL, DARK BM. ALDRIDGE DRAINING WELL TO GRAVITY. TOLERATED BIPAP AND SATING >92% ON RA. NO ACUTE OVERNIGHT EVENTS. PT IN BED RESTING, BED IN LOWEST POSITION, CALL LIGHT IN REACH. CONTINUING CARE.
[2025-08-08 07:09] LABS: VITAMIN D,1,25-DIHYDROXY 13.0 pg/mL (19.9-79.3)
[2025-08-08 11:01] LABS: BASOPHILS ABSOLUTE AUTO 0.05 K/mm3 (0.00-0.23); BASOPHILS PERCENT AUTO 1 % (0-2); EOSINOPHILS ABSOLUTE AUTO 0.34 K/mm3 (0.00-0.68); EOSINOPHILS PERCENT AUTO 3 % (0-6); Hematocrit 32.2 % (33.0-51.0); Hemoglobin 10.0 g/dL (11.5-16.0); IMMATURE GRAN ABSOLUTE AUTO 0.10 K/mm3 (0.00-0.10); IMMATURE GRAN PERCENT AUTO 1 % (0-1); LYMPHOCYTES ABSOLUTE AUTO 1.42 K/mm3 (0.84-5.20); LYMPHOCYTES PERCENT AUTO 14 % (21-46); MONOCYTES ABSOLUTE AUTO 0.60 K/mm3 (0.16-1.47); MONOCYTES PERCENT AUTO 6 % (4-13); Mean Corpuscular HGB Conc 31.1 g/dL (31.5-36.5); Mean Corpuscular Volume 104 fL (80-100); NEUTROPHILS ABSOLUTE AUTO 7.55 K/mm3 (1.96-9.15); NEUTROPHILS PERCENT AUTO 75 % (41-73); NRBC ABSOLUTE 0.00 K/mm3 (0.00-0.02); NRBC Auto 0.0 /100 WBC (0.0-0.2); Platelet Count 277 K/mm3 (150-400); RDW Coefficient Variation 13.6 % (11.7-14.2); RDW Standard Deviation 51.0 fL (35.1-46.3)
[2025-08-08 11:34] LABS: Alanine Aminotransfer (ALT/SGP 26.0 U/L (12-78); Albumin, Blood 2.3 g/dL (3.4-5.0); Albumin/Globulin Ratio 0.6 (0.8-1.8); Anion Gap 7.0 mmol/L (3-11); Aspartate Aminotrans (AST/SGOT 24.0 U/L (12-37); Bilirubin, Total 0.3 mg/dL (0.1-1.0); Blood Urea Nitrogen 27.0 mg/dL (8-24); CO2, Blood 26.0 mmol/L (21-32); Calcium, Blood 11.3 mg/dL (8.5-10.1); Chloride, Blood 111.0 mmol/L (98-108); Creatinine, Blood 1.3 mg/dL (0.40-1.00); Globulin, Blood 4.0 g/dL (2.2-4.0); Glucose, Blood 85.0 mg/dL (70-99); Potassium, Blood 3.4 mmol/L (3.5-5.5); Sodium, Blood 141.0 mmol/L (136-145); Total Protein, Blood 6.3 g/dL (6.4-8.2)
[2025-08-08 12:00] VITALS: BP 131/88
[2025-08-08 16:08] VITALS: BP 135/81
--- NOTE | 2025-08-08 17:48 | NUR ---
SUMMARY PT COMPLETED BARRIUM SWALLOW STUDY TODAY WITH SPEECH THERAPIST. WAS UPGRADED TO PUREED DIET AND THIN LIQUIDS WITH SUPERVISION/FEED ASSIST. PT TOOK APPROXIMATELY TWO BITES OF A SNACK EARLIER DURING LUNCHTIME AND DID NOT WANT ANYMORE. POOR ORAL INTAKE. PT HAS TAKEN A COUPLE SIPS OF WATER AND TOELRATED OK. REPOSITIONING PT Q2 IN BED. HEELS OFFLOADED WITH FOAM BOOTS AND BILAT LE ELEVATED ON PILLOWS. UPDATED PHOTOS TAKEN OF COCCYX AND WOUND CARE COMPLETED. LEFT FOREARM SKIN TEAR NOTED. AND CLEANSED AND BANDAID PLACED OVER. PHOTO TAKEN OF SKIN TEAR WELL. THIS MORNING PT WAS NOT ORIENTED AT ALL, WORD SALAD BUT TALKING AT ME NOT MAKING MUCH SENSE IN HER SPEECH,MUMBLED. THIS EVENING PT COULD TELL ME HER NAME BUT THAT WAS IT. ABLE TO CARRY ON SIMPLE CONVERSATION. ANTIBX ADMINISTERED ORDERED. POWERGLIDE DRESSING REPLACED TODAY PER PROTOCOL.
[2025-08-08] MEDS ORDERED: Ampicillin Sod/Sulbactam Sod 3 GM in NS 100 ML IV SCH (18:00)
[2025-08-08 19:46] VITALS: BP 149/85
[2025-08-08 23:33] VITALS: BP 135/81
[2025-08-09 02:57] VITALS: BP 149/92
--- NOTE | 2025-08-09 05:20 | NUR ---
END OF SHIFT SUMMARY: ADMITTED FOR HYPERNATREMIA, UTI, SEBASTIAN. PATIENT LIVES IN A [facility] [place]. PATIENT IS CONFUSED AND WORD SALADS. PATIENT IS UNABLE TO MAKE NEEDS KNOWN. PATIENT MUMBLES AND CANNOT ADVOCATE FOR NEEDS. ON TELE - NSR @ 71BPM. PATIENT IS ON 2L NASAL CANNULA. INCONTINENT OF BOWEL AND BLADDER PATIENT HAS ALDRIDGE IN PLACE. PATIENT HAD BARIUM SWALLOW YESTERDAY AND IS ON A PUREE DIET. PATIENT POCKETS FOOD AND REQUIRES ORAL CARE AFTER MEALS. TAKES MEDS CRUSHED WITH APPLE SAUCE. PATIENT HAS A WOUND ON HER COCCYX AND RIGHT HEEL. PATIENT IS ON HEPARIN. PATIENT HAS PALLIATIVE CARE CONSULT. BED IN LOWEST POSITION. CALL LIGHT WITHIN REACH. REPORT TO ONCOMING NURSE.
[2025-08-09 06:07] LABS: BASOPHILS ABSOLUTE AUTO 0.05 K/mm3 (0.00-0.23); BASOPHILS PERCENT AUTO 1 % (0-2); EOSINOPHILS ABSOLUTE AUTO 0.36 K/mm3 (0.00-0.68); EOSINOPHILS PERCENT AUTO 4 % (0-6); Hematocrit 31.8 % (33.0-51.0); Hemoglobin 9.8 g/dL (11.5-16.0); IMMATURE GRAN ABSOLUTE AUTO 0.12 K/mm3 (0.00-0.10); IMMATURE GRAN PERCENT AUTO 1 % (0-1); LYMPHOCYTES ABSOLUTE AUTO 1.18 K/mm3 (0.84-5.20); LYMPHOCYTES PERCENT AUTO 14 % (21-46); MONOCYTES ABSOLUTE AUTO 0.51 K/mm3 (0.16-1.47); MONOCYTES PERCENT AUTO 6 % (4-13); Mean Corpuscular HGB Conc 30.8 g/dL (31.5-36.5); Mean Corpuscular Volume 102 fL (80-100); NEUTROPHILS ABSOLUTE AUTO 6.14 K/mm3 (1.96-9.15); NEUTROPHILS PERCENT AUTO 74 % (41-73); NRBC ABSOLUTE 0.00 K/mm3 (0.00-0.02); NRBC Auto 0.0 /100 WBC (0.0-0.2); Platelet Count 272 K/mm3 (150-400); RDW Coefficient Variation 13.4 % (11.7-14.2); RDW Standard Deviation 50.4 fL (35.1-46.3)
[2025-08-09 06:40] LABS: Alanine Aminotransfer (ALT/SGP 23.0 U/L (12-78); Albumin, Blood 2.4 g/dL (3.4-5.0); Albumin/Globulin Ratio 0.6 (0.8-1.8); Anion Gap 6.0 mmol/L (3-11); Aspartate Aminotrans (AST/SGOT 21.0 U/L (12-37); Bilirubin, Total 0.2 mg/dL (0.1-1.0); Blood Urea Nitrogen 20.0 mg/dL (8-24); CO2, Blood 26.0 mmol/L (21-32); Calcium, Blood 11.3 mg/dL (8.5-10.1); Chloride, Blood 117.0 mmol/L (98-108); Creatinine, Blood 1.16 mg/dL (0.40-1.00); Globulin, Blood 3.7 g/dL (2.2-4.0); Glucose, Blood 89.0 mg/dL (70-99); Potassium, Blood 3.1 mmol/L (3.5-5.5); Sodium, Blood 146.0 mmol/L (136-145); Total Protein, Blood 6.1 g/dL (6.4-8.2)
[2025-08-09 09:18] VITALS: BP 166/91
--- NOTE | 2025-08-09 10:58 | NUR ---
Spiritual care visit conducted. The patient is lying in bed and alert, but is mostly confused. She answers some questions appropriately but once engaged in a longer dialogue she goes off the rails a bit. I spend a great deal of time with the patient's spouse, Zhao. He tells me about the extreme down turn she has had in the last 7 months. He also tells me about how active and healthy she was just prior to the medical complications. He tells me about the of the patient's son, who of cancer at age 50. 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 I normalized their struggles and concerns, reinforced helpful attitudes and practices and provided therapeutic listening. THe patient and Zhao responded well and showed signs of an elevated mood.
[2025-08-09 17:10] VITALS: BP 173/101
--- NOTE | 2025-08-09 17:12 | NUR ---
NO ACUTE CHANGES, CALL LIGHT WITH IN REACH, PT ORDERED TODAY, MINIMAL INTERACTION, ALDRIDGE TO GRAVITY, SPEECH WORKED WITH PATIENT THIS AM, REPOSITIONED Q2 HOURS, CALL LIGHT WITH IN REACH
[2025-08-09 20:01] VITALS: BP 174/107
--- NOTE | 2025-08-09 22:32 | NUR ---
PT WITH SMALL LIQUID BROWN EMESIS AFTER BEING REPOSITIONED IN BED. MEDICATED WITH IV ZOFRAN PER EMAR. PT UNABLE TO INFORM NURSE OF NAUSEA DUE TO COGNITION- BIPAP OFF DUE TO EMESIS.
[2025-08-10 00:20] VITALS: BP 150/99
[2025-08-10 04:23] VITALS: BP 179/107
--- NOTE | 2025-08-10 06:12 | NUR ---
SHIFT SUMMARY PT ORIENTED TO SELF ONLY. ANSWERING SOME "YES" "NO" QUESTIONS, BUT OTHERWISE HAS WORD SALAD. BLOOD PRESSURE ELEVATED DURING THE SHIFT. NEW ORDER RECEICED FOR NORVASC- GIVEN WITH SLIGHT IMPROVEMENT OF BP. PT WITH SMALL LIQUID BROWN EMESIS AFTER REPOSITIONING, MEDICATED WITH ZOFRAN PER EMAR. PT CONTINUES TO SAY YES TO "ARE YOU NAUSEOUS?" AND NO TO "ARE YOU FEELING OK?"- ZOFRAN REPEATED X 1. IV ANTIBIOTICS CONTINUE PER ORDER.ALDRIDGE DRAINING YELLOW URINE. PT REPOSITIONED DURING THE NIGHT. PT SLEPT INTERMITTENTLY DURING THE NIGHT.
[2025-08-10 07:30] VITALS: BP 151/99
[2025-08-10 11:48] VITALS: BP 155/92
--- NOTE | 2025-08-10 12:45 | NUR ---
SPOKE TO PT SPOUSE CHAVA OVER THE PHONE TO DISCUSS GOC. HE STATED FIRMLY HE WILL NOT MAKE ANY DECISIONS UNTIL HE SPEAKS TO THE DOCTOR. HE SAYS HE WILL BE HERE TOMORROW BETWEEN 8-12. UPDATED .
--- NOTE | 2025-08-10 18:26 | NUR ---
SHIFT SUMMARY PT A&OX1. PT ADMITTED DUE TO HYPERNATREMIA. HX OF CVA AND COGNITIVE DEFECTS. PT WEAK. PT OCCASSIONALY FOLLOWS SIMPLE COMMANDS. MUMBLED SPEECH, WORD SALAD, DOES NOT ANSWER QUESTIONS APPROPRIATELY. PT ON TELE, NO TELE REPORTS NOTED. NO SIGNS OF GENERALIZED PAIN NOTED. RESPIRATORY CARE INVOLVED. CONT PULSE OX D/C. PT SPO2 ON 1 L OF O2 VIA N/C IS 97%. PT ON BEDREST, PT IS A LIFT PT. PT Q2 TURNED. PT VSS. PT ON DYSPHASIA PRECAUTIONS. PT EATS POORLY. PT UPRIGHT 90 DEGREES FOR PO INTAKE. PT IS A FEEDER. PT TAKES MEDS CRUSHED IN APPLESAUCE. PT NEEDS ENCOURAGEMENT TO SWALLOW. PT HAS ALDRIDGE FOR ACUTE RETENTION, ALRDIDGE PATENT, DRAINING TO GRAVITY, STAT LOCK IN PLACE TO UPPER LEG. PT HAS WOUND CARE ORDERS. THIS RN COMPLETED WOUND CARE ORDERED. THIS RN CLEANED COCCYX WOUND AND R HEEL WOUND WITH WOUND SPRAY AND 4X4 GAUZE. APPLIED HYDROGEL, MEPILEX APPLIED TO COCCYX AND BILAT HEELS. HEELS OFFLOADED W FOAM AND PILLOWS. CRATE BOOTS BILAT HEELS. PT HAD BED BATH TODAY. PT IN BED, BED ALARM ON, IN LOWEST POSITION AND LOCKED, CALL LIGHT IN REACH.
[2025-08-10 19:21] VITALS: BP 162/97
[2025-08-11 04:07] VITALS: BP 167/94
[2025-08-11 05:51] LABS: BASOPHILS ABSOLUTE AUTO 0.05 K/mm3 (0.00-0.23); BASOPHILS PERCENT AUTO 0 % (0-2); EOSINOPHILS ABSOLUTE AUTO 0.20 K/mm3 (0.00-0.68); EOSINOPHILS PERCENT AUTO 2 % (0-6); Hematocrit 31.9 % (33.0-51.0); Hemoglobin 10.1 g/dL (11.5-16.0); IMMATURE GRAN ABSOLUTE AUTO 0.17 K/mm3 (0.00-0.10); IMMATURE GRAN PERCENT AUTO 1 % (0-1); LYMPHOCYTES ABSOLUTE AUTO 1.38 K/mm3 (0.84-5.20); LYMPHOCYTES PERCENT AUTO 12 % (21-46); MONOCYTES ABSOLUTE AUTO 0.68 K/mm3 (0.16-1.47); MONOCYTES PERCENT AUTO 6 % (4-13); Mean Corpuscular HGB Conc 31.7 g/dL (31.5-36.5); Mean Corpuscular Volume 102 fL (80-100); NEUTROPHILS ABSOLUTE AUTO 9.30 K/mm3 (1.96-9.15); NEUTROPHILS PERCENT AUTO 79 % (41-73); NRBC ABSOLUTE 0.00 K/mm3 (0.00-0.02); NRBC Auto 0.0 /100 WBC (0.0-0.2); Platelet Count 317 K/mm3 (150-400); RDW Coefficient Variation 14.0 % (11.7-14.2); RDW Standard Deviation 51.5 fL (35.1-46.3)
[2025-08-11 06:25] LABS: Alanine Aminotransfer (ALT/SGP 29.0 U/L (12-78); Albumin, Blood 2.5 g/dL (3.4-5.0); Albumin/Globulin Ratio 0.7 (0.8-1.8); Anion Gap 5.0 mmol/L (3-11); Aspartate Aminotrans (AST/SGOT 26.0 U/L (12-37); Bilirubin, Total 0.2 mg/dL (0.1-1.0); Blood Urea Nitrogen 14.0 mg/dL (8-24); CO2, Blood 30.0 mmol/L (21-32); Calcium, Blood 11.0 mg/dL (8.5-10.1); Chloride, Blood 119.0 mmol/L (98-108); Creatinine, Blood 0.95 mg/dL (0.40-1.00); Globulin, Blood 3.7 g/dL (2.2-4.0); Glucose, Blood 113.0 mg/dL (70-99); Potassium, Blood 2.8 mmol/L (3.5-5.5); Sodium, Blood 151.0 mmol/L (136-145); Total Protein, Blood 6.2 g/dL (6.4-8.2)
--- NOTE | 2025-08-11 06:44 | NUR ---
SHIFT SUMMARY PT TURNED AND REPOSITIONED DURING THE NIGHT. MEPELEX INTACT TO BILAT HEELS AND COCCYX. HEELS ELEVATED OFF OF BED AND FOAM CRADLES IN PLACE. IV ANTIBIOTICS CONTINUE PER ORDER. ALDRIDGE DRAINING YELLOW URINE. PT SLEPT LONG INTERVALS DURING THE NIGHT. PT MAINTAINED ON OXYGEN 1L NC.
[2025-08-11 08:17] VITALS: BP 165/96
[2025-08-11] MEDS ORDERED: Potassium Chloride 10 Meq Tablet SA PO ONE (08:20)
[2025-08-11] MEDS ORDERED: Potassium Chl 20MEQ/Water100ML 100 ML IV SCH (08:35)
[2025-08-11 08:50] LABS: Magnesium, Blood 2.1 mg/dL (1.6-2.4); Phosphorus, Blood 1.5 mg/dL (2.5-4.9)
--- NOTE | 2025-08-11 10:07 | NUR ---
MET WITH PT'S CHAVA IN PALLIATIVE OFFICE. HE REQUESTED MEETING TO DISCUSS GOALS OF CARE. THE PATIENT IS UNABLE TO COMMUNICATE, STATING "MMHHMM" TO ALL QUESTIONS. CHAVA STATES SHE IS CONFUSED AT BASELINE AND IT HAS WORSENED STEADILY SINCE HER PREVIOUS STROKE. WE DISCUSSED OPTIONS OF SNF, HOME HEALTH AND HOSPICE. WE HAVE PREVIOUSLY DISCUSSED THESE OPTIONS, BUT NOT IN DEPTH. TODAY, CHAVA HAS CHOSEN HOSPICE CARE FOR [facility]. WILL DISCUSS WITH CM, ASSIST WITH ARRANGEMENTS NEEDED TO RETURN PT TO [facility].
[2025-08-11 11:56] VITALS: BP 167/89
[2025-08-11] MEDS ORDERED: Potassium Phosphate Dibasic 10 MM in Dextrose 5% 250 ML IV STA (12:49)
[2025-08-11] MEDS ORDERED: Potassium Phosphate Dibasic 30 MM in Dextrose 5% 500 ML IV ONE (15:00)
[2025-08-11 15:30] VITALS: BP 140/80
[2025-08-11 15:42] LABS: Albumin, Blood 2.6 g/dL (3.4-5.0); Anion Gap 3 mmol/L (3-11); Blood Urea Nitrogen 13 mg/dL (8-24); CO2, Blood 31 mmol/L (21-32); Calcium, Blood 10.6 mg/dL (8.5-10.1); Chloride, Blood 117 mmol/L (98-108); Creatinine, Blood 0.89 mg/dL (0.40-1.00); Glucose, Blood 140 mg/dL (70-99); Phosphorus, Blood 1.4 mg/dL (2.5-4.9); Potassium, Blood 3.7 mmol/L (3.5-5.5); Sodium, Blood 147 mmol/L (136-145)
--- NOTE | 2025-08-11 18:52 | NUR ---
SHIFT SUMMARY PT A&OX1. PT ADMITTED DUE TO HYPERNATREMIA. HX OF CVA AND COGNITIVE DEFECTS. PT WEAK. PT OCCASIONALLY FOLLOWS SIMPLE COMMANDS. PT HAS MUMBLED SPEECH AND WORD SALAD AND DOES NOT ANSWER QUESTIONS APPROPRIATELY. PT ON TELE, NO TELE REPORTS NOTED, NO SIGNS OF GENERALIZED PAIN NOTED, PT ON 1L OF O2 VIA N/C. SPO2 97%. PT ON BEDREST. PT IS A LIFT PT. PT TURNED Q2. PT VSS. PT ON DYSPHASIA PRECAUTIONS. PT EATS POORLY. PT UPRIGHT 90 DEGREES FOR PO INTAKE. PT IS A FEEDER. PT TAKES MEDS CRUSHED IN APPLESAUCE. PT NEEDS ENCOURAGEMENT TO SWALLOW. PT HAS ALDRIDGE FOR RETENTION, ALDRIDGE PATENT, DRAINING TO GRAVITY, STAT LOCK IN PLACE TO UPPER LEG. PT HAS WOUND CARE ORDERS, THIS RN COMPLETED WOUND CARE ORDERED. THIS RN CLEANED COCCYX WOUND AND R HEEL WOUND WITH WOUND SPRAY AND 4X4 GAUZE, APPLIED HYDROGEL, MEPILEX APPLIED TO COCCYX AND BILAT HEELS. WHEN PT WAS TURNED TO L SIDE FOR WOUND CARE ON COCCYX, PT PRODUCED EMESIS, NAUSEA MEDS GIVEN BY BREAK RN. SUCTION SET UP AT BEDSIDE. ORAL CARE COMPLETED. DR. CAMPBELL SUBMITTED HOSPICE REFERRAL. PALLIATIVE CARE CAME TO SEE PT. D5 INF RUNNING AT 100ML/HR. PT GOT PO POTASSIUM AND IV POTASSIUM PHOS. PT IN BED, BED IN LOWEST POSITION, LOCKED, CALL LIGHT IN REACH. PALLIATIVE CARE REPORTED PT GO HOME WEDNESDAY AND TRANSFER TO HOSPICE WEDNESDAY.
[2025-08-11 19:11] VITALS: BP 168/101
[2025-08-12 00:30] VITALS: BP 171/97
[2025-08-12 04:34] VITALS: BP 169/92
[2025-08-12 05:38] LABS: BASOPHILS ABSOLUTE AUTO 0.11 K/mm3 (0.00-0.23); BASOPHILS PERCENT AUTO 1 % (0-2); EOSINOPHILS ABSOLUTE AUTO 0.65 K/mm3 (0.00-0.68); EOSINOPHILS PERCENT AUTO 5 % (0-6); Hematocrit 28.6 % (33.0-51.0); Hemoglobin 9.0 g/dL (11.5-16.0); IMMATURE GRAN ABSOLUTE AUTO 0.29 K/mm3 (0.00-0.10); IMMATURE GRAN PERCENT AUTO 2 % (0-1); LYMPHOCYTES ABSOLUTE AUTO 2.04 K/mm3 (0.84-5.20); LYMPHOCYTES PERCENT AUTO 16 % (21-46); MONOCYTES ABSOLUTE AUTO 0.85 K/mm3 (0.16-1.47); MONOCYTES PERCENT AUTO 7 % (4-13); Mean Corpuscular HGB Conc 31.5 g/dL (31.5-36.5); Mean Corpuscular Volume 102 fL (80-100); NEUTROPHILS ABSOLUTE AUTO 8.51 K/mm3 (1.96-9.15); NEUTROPHILS PERCENT AUTO 68 % (41-73); NRBC ABSOLUTE 0.00 K/mm3 (0.00-0.02); NRBC Auto 0.0 /100 WBC (0.0-0.2); Platelet Count 249 K/mm3 (150-400); RDW Coefficient Variation 13.9 % (11.7-14.2); RDW Standard Deviation 51.7 fL (35.1-46.3)
[2025-08-12 06:07] LABS: Albumin, Blood 2.2 g/dL (3.4-5.0); Anion Gap 8 mmol/L (3-11); Blood Urea Nitrogen 11 mg/dL (8-24); CO2, Blood 25 mmol/L (21-32); Calcium, Blood 9.5 mg/dL (8.5-10.1); Chloride, Blood 111 mmol/L (98-108); Creatinine, Blood 0.86 mg/dL (0.40-1.00); Glucose, Blood 112 mg/dL (70-99); Magnesium, Blood 1.8 mg/dL (1.6-2.4); Phosphorus, Blood 1.9 mg/dL (2.5-4.9); Potassium, Blood 3.2 mmol/L (3.5-5.5); Sodium, Blood 141 mmol/L (136-145)
--- NOTE | 2025-08-12 06:31 | NUR ---
SHIFT SUMMARY PT TURNED AND REPOSITIONED DURING THE NIGHT. IV ANTIBIOTICS CONTINUE PER ORDER. PT MAKING LESS EYE CONTACT THAN PREVIOUS SHIFTS, AND IS LESS VERBAL. NO EMESIS THIS SHIFT. SLEPT INTERMITTENTLY DURING THE NIGHT.
[2025-08-12 07:40] VITALS: BP 163/99
[2025-08-12] MEDS ORDERED: Potassium Phosphate Dibasic 30 MM in Dextrose 5% 500 ML IV STA (08:27)
[2025-08-12 11:09] VITALS: BP 166/104
[2025-08-12] MEDS ORDERED: D5W-1/2NS 1,000 ML IV SCH (13:00)
[2025-08-12 16:09] VITALS: BP 169/96
[2025-08-12 19:16] VITALS: BP 174/106
--- NOTE | 2025-08-12 19:23 | NUR ---
SHIFT SUMMARY PT A&OX1. PT ADMITTED DUE TO HYPERNATREMIA. HX OF CVA AND COGNITIVE DEFECTS. PT WEAK. PT OCCASIONALLY FOLLOWS SIMPLE COMMANDS. PT HAS MUMBLED SPEECH AND WORD SALAD AND DOES NOT ANSWER QUESTIONS APPROPRIATELY. PT LESS TALKATIVE. PT ON TELE, NO TELE REPORTS NOTED, NO SIGNS OF GENERALIZED PAIN NOTED, PT ON 1L OF O2 VIA N/C. SPO2 100%. PT ON BEDREST. PT IS A LIFT PT. PT TURNED Q2. PT VSS. PT ON DYSPHASIA PRECAUTIONS. PT EATS POORLY. PT UPRIGHT 90 DEGREES FOR PO INTAKE. PT IS A FEEDER. PT TAKES MEDS CRUSHED IN APPLESAUCE. PT NEEDS ENCOURAGEMENT TO SWALLOW. PT HAS ALDRIDGE FOR RETENTION, ALDRIDGE PATENT, DRAINING TO GRAVITY, STAT LOCK IN PLACE TO UPPER LEG. PT HAD A BM DURING THIS SHIFT. THIS RN APPLIED NEW MEPILEX ON COCCYX. SUCTION SET UP AT BEDSIDE. ORAL CARE COMPLETED.D5 FLUIDS D/C D. D5 HALF NS ORDERED AND RUNNING AT 100ML/HR. PT GOT IV POTASSIUM PHOS. IV ANTIBIOTIC INFUSED. PT IN BED, BED IN LOWEST POSITION, LOCKED, CALL LIGHT IN REACH. PLAN IS TO GO HOME WEDNESDAY AND TRANSFER TO HOSPICE WEDNESDAY. PT REPORTED FEELING SICK, PT MEDICATED WITH ZOFRAN
[2025-08-12 22:31] LABS: PTHRP BY LC-MS/MS,PLASMA 3.6 pmol/L (0.0-3.4)
[2025-08-13 00:58] VITALS: BP 164/98
[2025-08-13 03:57] VITALS: BP 166/111
--- NOTE | 2025-08-13 04:11 | NUR ---
SHIFT SUMMARY PATIENT IS ALERT AND ORIENTED X1. PATIENT HAS HAD NO ACUTE EVENTS THIS SHIFT. VITAL SIGNS REVIEWED. PATIENT HAS HAD ELEVATED BP THIS SHIFT. PATIENT HAS HAD SEVERAL LARGE INCONTINENT BM THIS SHIFT. ALDRIDGE IS PATENT AND DRAINING TO GRAVITY. NO EVENTS ON TELE THIS SHIFT. PATIENT ON 1L NC FOR COMFORT. PATIENT IS A POSSIBLE DC ON HOSPICE. PATIENT IS A FEEDER AND DYSPHASIA PRECAUTIONS MAINTAINED. IV FLUIDS INFUSED ORDERED. PATIENT HAS BEEN TURNED Q2. BED IN LOCKED AND LOWEST POSITION. CALL LIGHT IN PLACE.
[2025-08-13 05:57] LABS: BASOPHILS ABSOLUTE AUTO 0.07 K/mm3 (0.00-0.23); BASOPHILS PERCENT AUTO 1 % (0-2); EOSINOPHILS ABSOLUTE AUTO 0.46 K/mm3 (0.00-0.68); EOSINOPHILS PERCENT AUTO 5 % (0-6); Hematocrit 28.1 % (33.0-51.0); Hemoglobin 8.8 g/dL (11.5-16.0); IMMATURE GRAN ABSOLUTE AUTO 0.27 K/mm3 (0.00-0.10); IMMATURE GRAN PERCENT AUTO 3 % (0-1); LYMPHOCYTES ABSOLUTE AUTO 1.74 K/mm3 (0.84-5.20); LYMPHOCYTES PERCENT AUTO 18 % (21-46); MONOCYTES ABSOLUTE AUTO 0.71 K/mm3 (0.16-1.47); MONOCYTES PERCENT AUTO 7 % (4-13); Mean Corpuscular HGB Conc 31.3 g/dL (31.5-36.5); Mean Corpuscular Volume 101 fL (80-100); NEUTROPHILS ABSOLUTE AUTO 6.33 K/mm3 (1.96-9.15); NEUTROPHILS PERCENT AUTO 66 % (41-73); NRBC ABSOLUTE 0.00 K/mm3 (0.00-0.02); NRBC Auto 0.0 /100 WBC (0.0-0.2); Platelet Count 240 K/mm3 (150-400); RDW Coefficient Variation 13.5 % (11.7-14.2); RDW Standard Deviation 50.1 fL (35.1-46.3)
[2025-08-13 06:26] LABS: Albumin, Blood 2.1 g/dL (3.4-5.0); Anion Gap 7 mmol/L (3-11); Blood Urea Nitrogen 6 mg/dL (8-24); CO2, Blood 26 mmol/L (21-32); Calcium, Blood 8.5 mg/dL (8.5-10.1); Chloride, Blood 109 mmol/L (98-108); Creatinine, Blood 0.69 mg/dL (0.40-1.00); Glucose, Blood 104 mg/dL (70-99); Phosphorus, Blood 2.3 mg/dL (2.5-4.9); Potassium, Blood 3.2 mmol/L (3.5-5.5); Sodium, Blood 139 mmol/L (136-145)
[2025-08-13 07:43] VITALS: BP 152/100
--- NOTE | 2025-08-13 12:00 | NUR ---
MULTIPULE VISITS WITH SPOUSE "CHAVA" THIS MORNING. HE IS LOOKING FORWARD TO "LES" RETURNING TO THE [facility] AND STARTING [facility] TOMORROW. CHAVA DISPLAYING MULTIPULE SIGNS OF ANXIETY RE: DISCHARGE PLANS AND COORDINATION. THERAPUTIC LISTENING PROVIDED. COLLABORATED WITH CM, BEDSIDE RN AND PROVIDER. PC TO REMAIN AVAILABLE NEEDED.
--- NOTE | 2025-08-13 14:19 | NUR ---
DISCHARGE SUMMARY 1410 PATIENT LEFT BY MEDICAL TRANSPORT ON A GURNEY WITH ALL HER BELONGINGS. THE POWERGLIDE WAS REMOVED AND INTACT. MEPILEX REPLACED TO B/L HEELS AND SACRUM. ALDRIDGE CARE COMPLETED PRIOR TO DISCHARGE. PATIENT LEFT TO [facility]. THE PATIENT LEFT IN A STABLE CONDITION.
== END 2025-08-13 14:10 | disposition hospice, home (50) | DRG 871 ==
LOC: ER 15:38 → PCU 19:37 → ERHOLD 19:37 → MEDS 19:37 → PCU 22:55 → MEDS 08-07 21:46 → ENPENDDIS 08-13 10:58 → MEDS 08-13 14:10
PROVIDERS: Emergency Medicine; Family Medicine; Student in an Organized Health Care Education/Training Program; ADMIT Internal Medicine
DX: A41.81 Sepsis due to Enterococcus (principal); G92.8 Other toxic encephalopathy; N17.9 Acute kidney failure, unspecified; E87.0 Hyperosmolality and hypernatremia; N39.0 Urinary tract infection, site not specified; J96.11 Chronic respiratory failure with hypoxia; N25.81 Secondary hyperparathyroidism of renal origin; E87.20 Acidosis, unspecified; Z66 Do not resuscitate; Z51.5 Encounter for palliative care; R65.20 Severe sepsis without septic shock; G89.29 Other chronic pain; M54.9 Dorsalgia, unspecified; G47.33 Obstructive sleep apnea (adult) (pediatric); I10 Essential (primary) hypertension; M19.90 Unspecified osteoarthritis, unspecified site; E83.52 Hypercalcemia; E86.0 Dehydration; G31.84 Mild cognitive impairment of uncertain or unknown etiology; E87.6 Hypokalemia; E83.39 Other disorders of phosphorus metabolism; R13.19 Other dysphagia; Z86.73 Personal history of transient ischemic attack (TIA), and cerebral infarction without residual deficits; Z90.710 Acquired absence of both cervix and uterus; Z87.891 Personal history of nicotine dependence; Z88.5 Allergy status to narcotic agent; Z96.82 Presence of neurostimulator
CPT/HCPCS: 36415; 51701; 70450; 71045; 74230; 76770; 80048; 80053; 80069; 80320; 81001; 82306; 82330; 82542; 82652; 82803; 83605; 83735; 83880; 83930; 83935; 83970; 84100; 84133; 84295; 84300; 84439; 84443; 85025; 85610; 87040; 87077; 87086; 87186; 92526; 92610; 92611; 93005; 93010; 94660; 94760; 94762; 97110; 97162; 99285-25; A9270; C1751; J0295; J0696; J1644; J2405; J3480; J3489; J7040; J7042; J7060; J7070; J7120